=== PATIENT | female | born 1955 | race Caucasian/White ===

== ENCOUNTER → 2017-01-10 | Outpatient (CLI) | payer MEDICARE, OTHER ==
[2014-05-19 15:18] VITALS: BP 123/75
[~2017-01-10] MED LIST: MULT-245 PO; OMEG500C3 PO; OXYC-323 PO; TRAM50TA PO; VIT1TABL2 PO
--- NOTE | 2017-01-10 10:47 | KCIC ---
MRI of the lumbar spine without contrast 01/07/2017 CLINICAL HISTORY: low back pain which radiates down the left leg. TECHNIQUE: Unenhanced T1-weighted and T2-weighted sagittal and axial and inversion recovery sagittal images of the lumbar spine were obtained. FINDINGS: The alignment of the lumbar vertebrae is within normal limits. Degenerative signal changes are seen involving the L2-3, L3-4, L4-5 and L5-S1 discs. Degenerative signal changes are seen within the marrow surrounding these discs. A 1.6 cm hemangioma is seen involving the L1 vertebral body. The conus medullaris is normal morphology, position, and signal characteristics. At the L1-2 and L2-3 disc spaces there are minimal to mild generalized disc bulges. Degenerative changes are seen involving the facet joints bilaterally. These findings do not result in significant central spinal canal or neural foraminal stenosis. At the L3-4 disc space there is a mild generalized disc bulge. Degenerative changes are seen involving the facet joints bilaterally. There is mild ligamentum flavum hypertrophy bilaterally. There is prominence of the posterior epidural fat. These findings when combined result in mild central spinal canal stenosis. No neural foraminal stenosis is seen. At the L4-5 disc space there is a mild generalized disc bulge. The patient is status post left hemilaminotomy. Degenerative changes are seen involving the facet joints bilaterally. Mild to moderate right ligamentum flavum hypertrophy is noted. These findings do not result in significant central spinal canal or neural foraminal stenosis. At the L5-S1 disc space there is a mild generalized disc bulge. This is eccentric to the right. Degenerative changes are seen involving the facet joints bilaterally. There is mild to moderate ligamentum flavum hypertrophy bilaterally. These findings when combined do not result in significant central spinal canal or neural foraminal stenosis. IMPRESSION: 1. Post left hemilaminotomy at L4-5. 2. The changes of degenerative disc disease are seen involving the lumbar spine. These findings result in mild central spinal canal stenosis at L3-4. No neural foraminal stenosis is seen. Electronically signed by: Adam Purvis MD (01/10/2017 10:44 AM) [id number]
== END | disposition home or self-care (01) ==
LOC: KCIC MRI 08:42
DX: M51.36 Other intervertebral disc degeneration, lumbar region (principal); M48.061 Spinal stenosis, lumbar region without neurogenic claudication
CPT/HCPCS: 72148

== ENCOUNTER → 2021-07-09 | Outpatient (CLI) | payer MEDICARE, MEDICAID ==
[2014-05-19 15:18] VITALS: BP 123/75
[~2021-07-09] MED LIST changes: +GADOTERATE 7.5 MMOL/15ML VIAL. IVP ONE; -OXYC-323 PO; +OXYC1TAB15 PO
--- NOTE | 2021-07-09 14:11 | KCIC ---
MRI LUMBAR SPINE WITHOUT AND WITH IV CONTRAST Date: 07/09/2021 8:25 AM Indication: LUMBAR RADICULOPATHY. Previous surgery 2011. Chronic LBP, radiates across sacral region. Comparison: MRI 01/10/2017. CT 06/08/2019 Technique: Multi-planar multi-weighted magnetic resonance imaging of the lumbar spine was performed w ith and without intravenous contrast using the standard lumbar spine protocol. [address] was administered intravenously during the examination. FINDINGS: The lumbar spine is normally aligned. No acute fracture. The intervertebral discs are normal. Bone ma rrow signal intensity is normal. The conus terminates at a normal level. No abnormal signal is seen within the visualized distal spina l cord. No clumping of intrathecal nerve roots. No abnormal enhancement. No soft tissue abnormality in the visualized abdomen or pelvis. T12-L1: No disc bulge. Mild facet arthropathy. No significant spinal stenosis or neural foraminal ramesh rowing. L1-L2: No disc bulge. Mild facet arthropathy. No significant spinal stenosis or neural foraminal narr owing. L2-L3: Disc bulge. Moderate facet arthropathy. No significant spinal stenosis or neural foraminal ramesh rowing. L3-L4: Disc bulge. Moderate facet arthropathy. Mild spinal stenosis. No neural foraminal narrowing. L4-L5: Left hemilaminectomy. Disc bulge. Mild facet arthropathy. No spinal canal stenosis. Mild bilat eral neural foraminal narrowing. L5-S1: Disc bulge. Mild facet arthropathy. No significant spinal stenosis or neural foraminal narrowi ng. IMPRESSION: Predominately mild lumbar spondylosis, detailed level by level above. Electronically signed by: Esau Jorge MD (07/09/2021 2:09 PM) [id number]
== END ==
LOC: KCIC MRI 08:06
PROVIDERS: ATTEND Neurological Surgery
DX: M51.17 Intervertebral disc disorders with radiculopathy, lumbosacral region (principal); M43.07 Spondylolysis, lumbosacral region; M48.061 Spinal stenosis, lumbar region without neurogenic claudication
CPT/HCPCS: 72158; A9575